=== PATIENT | female | born 1980 | race African-American/Black ===

== ENCOUNTER 2023-03-05 15:05 | Emergency (ER) | payer MEDICAID, OTHER ==
[~2023-03-05] VITALS: Ht 152.4 cm; Wt 72.7 kg
[~2023-03-05 15:05] MED LIST: NOCURR
[2023-03-05 15:12] VITALS: TEMP 98.3
[2023-03-05] MEDS ORDERED: LIDOCAINE 1% 10 ML VIAL ONE (17:55)
[2023-03-05 18:00] VITALS: BP 124/71; PULSE 98; RESP 15
[2023-03-05] MEDS ORDERED: LIDOCAINE 1% 10 ML VIAL SQ ONE (18:00)
[2023-03-05] MEDS ORDERED: DOXY-354 PO (18:08)
[2023-03-05] MEDS ORDERED: ACET-2080 PO (18:08)
[2023-03-05] MEDS ORDERED: CEPH-558 PO (18:08)
[2023-03-05] MEDS ORDERED: CORTSUSP AS (18:08)
== END 2023-03-05 18:21 | disposition home or self-care (01) ==
LOC: EMS 15:08
DX: L73.9 Follicular disorder, unspecified (principal); H60.92 Unspecified otitis externa, left ear; F17.210 Nicotine dependence, cigarettes, uncomplicated; F12.90 Cannabis use, unspecified, uncomplicated; Z98.890 Other specified postprocedural states
CPT/HCPCS: 99284; 10160; J3490

== ENCOUNTER 2023-08-12 06:28 | Emergency (ER) | payer OTHER ==
[~2023-08-12] VITALS: Ht 152.4 cm; Wt 86.4 kg
[~2023-08-12 06:28] MED LIST changes: +ACET-2080 PO; +CEPH-558 PO; +CORTSUSP AS; +DOXY-354 PO; -NOCURR
[2023-08-12 06:42] VITALS: TEMP 98.7
[2023-08-12] MEDS ORDERED: LIDOCAINE 5% TRANSDERMAL PATCH TD ONE (07:00)
[2023-08-12] MEDS ORDERED: ACETAMINOPHEN 500 MG TABLET PO ONE (07:00)
[2023-08-12] MEDS ORDERED: KETOROLAC TROMETHAMINE 30 MG/ML VIAL IM ONE (07:30)
[2023-08-12 09:16] VITALS: BP 142/96; PULSE 100; RESP 16
[2023-08-12] MEDS ORDERED: ACET-3385 PO (09:18)
[2023-08-12] MEDS ORDERED: IBUP-1492 PO (09:18)
== END 2023-08-12 09:40 | disposition home or self-care (01) ==
LOC: EMS 06:29
DX: S13.4XXA Sprain of ligaments of cervical spine, initial encounter (principal); F17.210 Nicotine dependence, cigarettes, uncomplicated; F12.90 Cannabis use, unspecified, uncomplicated; Z98.890 Other specified postprocedural states; V89.2XXA Person injured in unspecified motor-vehicle accident, traffic, initial encounter; Y93.89 Activity, other specified; Y92.89 Other specified places as the place of occurrence of the external cause; Y99.8 Other external cause status
CPT/HCPCS: 99284; 70450; 71250; 72125; J1885

== ENCOUNTER 2024-04-23 20:11 | Emergency (ER) | payer OTHER ==
[~2024-04-23 20:11] MED LIST changes: -ACET-2080 PO; +AMOX-457 PO; -CEPH-558 PO; -CORTSUSP AS; -DOXY-354 PO
== END 2024-04-23 21:00 | disposition left against medical advice (07) ==
LOC: EMS 20:11
DX: R53.1 Weakness (principal); Z53.21 Procedure and treatment not carried out due to patient leaving prior to being seen by health care provider

== ENCOUNTER 2024-10-07 19:23 | Emergency (ER) | payer OTHER ==
[~2024-10-07] VITALS: Ht 154.9 cm; Wt 86.4 kg
[2024-10-07 19:31] VITALS: TEMP 98.3
[2024-10-07 23:35] VITALS: BP 130/91; PULSE 109; RESP 20; O2SAT 100
[2024-10-07] MEDS: ACETAMINOPHEN 325 MG TABLET PO ONE (23:35)
[2024-10-07] MEDS: IBUPROFEN 400 MG TABLET PO ONE (23:35)
== END 2024-10-07 23:50 | disposition home or self-care (01) ==
LOC: EMS 19:23
DX: M25.522 Pain in left elbow (principal); F17.210 Nicotine dependence, cigarettes, uncomplicated; F12.90 Cannabis use, unspecified, uncomplicated; F15.90 Other stimulant use, unspecified, uncomplicated
CPT/HCPCS: 99283

== ENCOUNTER 2025-03-26 13:38 | Emergency (ER) | payer OTHER ==
[~2025-03-26] VITALS: Ht 154.9 cm; Wt 92.9 kg
[2025-03-26 13:54] VITALS: TEMP 98.8
[2025-03-26 19:06] VITALS: BP 117/82; PULSE 95; RESP 18; O2SAT 100
== END 2025-03-26 20:23 | disposition home or self-care (01) ==
LOC: EMS 13:38
DX: M54.50 Low back pain, unspecified (principal); F12.90 Cannabis use, unspecified, uncomplicated; F17.210 Nicotine dependence, cigarettes, uncomplicated; F15.90 Other stimulant use, unspecified, uncomplicated; Z98.890 Other specified postprocedural states; Z88.0 Allergy status to penicillin; V49.9XXA Car occupant (driver) (passenger) injured in unspecified traffic accident, initial encounter; Y93.89 Activity, other specified; Y92.410 Unspecified street and highway as the place of occurrence of the external cause; Y99.8 Other external cause status
CPT/HCPCS: 70450; 72125; 72131; 84703; 99284